=== PATIENT | male | born 1985 | race Caucasian/White ===

== ENCOUNTER 2018-03-07 03:16 | Emergency (ER) | payer OTHER ==
[~2018-03-07] VITALS: Ht 198.1 cm; Wt 145.2 kg
[2018-03-07 03:29] VITALS: BP 170/111
--- NOTE | 2018-03-07 03:32 | ED GI/GU/ABDOMINAL COMPLAINT ---
See Addendum History of Present Illness General Chief Complaint: Abdominal Pain/Flank Pain Stated Complaint: PT C/O SEVERE ABD PAIN Source: patient, family Exam Limitations: no limitations Vital Signs & Intake/Output Vital Signs & Intake/Output Vital Signs Date Time Temp Pulse Resp B/P B/P Pulse O2 O2 Flow FiO2 Mean Ox Delivery Rate 03/07 0329 96.7 53 16 170/111 98 Room Air Room Air Allergies Coded Allergies: No Known Allergies (03/07/18) Triage Note: 33YO MALE TO TRIAGE W/CO LLQ PAIN THAT AWOKE HIM TONITE. +N+V Triage Nurses Notes Reviewed? yes HPI: Patient was awoken from sleep with a sudden onset of severe pain to his left testicle that radiated up towards his left flank. The pain is constant. The pain is aching and cramping in nature. The pain radiates noted above. The pain is 10 out of 10. Positive nausea and vomiting 1. No dysuria or hematuria. Past History Travel History Traveled to [place] past 21 day No Medical History Any Pertinent Medical History? none Neurological: NONE EENT: NONE Cardiovascular: NONE Respiratory: NONE Gastrointestinal: NONE Hepatic: NONE Renal: NONE Musculoskeletal: NONE Psychiatric: NONE Endocrine: NONE Surgical History Surgical History: non-contributory Psychosocial History What is your primary language Panamanian Tobacco Use: Current Daily Use Daily Tobacco Use Amount/Type: => 5 Cigarettes daily ETOH Use: occasional use Illicit Drug Use: denies illicit drug use Family History Hx Contributory? No Review of Systems Review of Systems Constitutional: Reports: no symptoms. EENTM: Reports: no symptoms. Respiratory: Reports: no symptoms. Cardiovascular: Reports: no symptoms. GI: Reports: see HPI, abdominal pain, nausea, vomiting. Genitourinary: Reports: see HPI. Musculoskeletal: Reports: see HPI, back pain. Skin: Reports: no symptoms. Neurological/Psychological: Reports: no symptoms. Hematologic/Endocrine: Reports: no symptoms. Immunologic/Allergic: Reports: no symptoms. All Other Systems: Reviewed and Negative Physical Exam Physical Exam General Appearance: well developed/nourished, alert, awake, anxious, severe distress Head: atraumatic, normal appearance Eyes: Bilateral: PERRL, EOMI. Ears, Nose, Throat, Mouth: hearing grossly normal, moist mucous membrane Neck: normal inspection, supple, full range of motion Respiratory: normal breath sounds, chest non-tender, no respiratory distress, lungs clear Cardiovascular: regular rate/rhythm, normal peripheral pulses Gastrointestinal: normal bowel sounds, soft, non-tender, no organomegaly Male Genitals: HIGH RIDING LEFT TESTICCLE, NO CREMESTERIC REFLEX Back: normal inspection, normal range of motion, NO CVA TENDERNESS Extremities: normal range of motion, pelvis stable Neurologic/Psych: no motor/sensory deficits, awake, alert, oriented x 3, normal gait, normal mood/affect Skin: intact, normal color, diaphoresis Core Measures ACS in differential dx? No Sepsis Present: No Sepsis Focused Exam Completed? No Progress Differential Diagnosis: testicular torsion, ureterolithiasis, UTI/pyelo Plan of Care: Orders Procedure Date/time Status US-TESTICULAR 03/[address] ABD & PELVIS W/O IV CONTRAS 03/07 340 Active LIPASE 03/07 334 Complete COMPREHENSIVE METABOLIC PANEL 03/07 334 Complete CBC WITHOUT DIFFERENTIAL 03/07 334 Complete AMYLASE 03/07 334 Complete URINALYSIS 03/07 331 Complete Laboratory Tests 03/07/18 0634: Lactic Acid Cancelled 03/07/18 0339: Anion Gap 15, Estimated GFR > 60, BUN/Creatinine Ratio 16.7, Glucose 115 H, Calcium 9.2, Total Bilirubin 0.7, AST 38, ALT 62, Alkaline Phosphatase 66, Total Protein 7.3, Albumin 4.5, Globulin 2.8, Albumin/Globulin Ratio 1.6, Amylase 33, Lipase 22 L, CBC w Diff NO MAN DIFF REQ, RBC 5.59, MCV 86.6, MCH 29.0, MCHC 33.4, RDW 12.9, MPV 8.8, Gran % 61.3, Lymphocytes % 28.7, Monocytes % 6.4, Eosinophils % 3.3, Basophils % 0.3, Absolute Granulocytes 5.9, Absolute Lymphocytes 2.7, Absolute Monocytes 0.6, Absolute Eosinophils 0.3, Absolute Basophils 0 03/07/18 0334: Urine Color YEL, Urine Clarity HAZY H, Urine pH 5.5, Ur Specific [place] >= 1.030, Urine Protein 30 H, Urine Ketones NEG, Urine Nitrite NEG, Urine Bilirubin NEG, Urine Urobilinogen 0.2, Ur Leukocyte Esterase NEG, Ur Microscopic SEDIMENT EXAMINED, Urine RBC 10-15 H, Ur Epithelial Cells RARE, Urine Bacteria FEW H, Urine Hemoglobin LARGE H, Urine Glucose NEG Diagnostic Imaging: Viewed by Me: CT Scan, Ultrasound. Discussed w/RAD: CT Scan, Ultrasound. Radiology Impression: SEE BELOW Initial ED EKG: none Comments: WET READ BY RADIOLOGIST: NO TESTICULAR TORSION NO STONE, MILD LEFT HYDRONEPHROSIS, NO HYDROUTETER Patient and his had been updated on and radiology results. Questions up and answered. Departure Departure Disposition: HOME OR SELF CARE Condition: Stable Clinical Impression Primary Impression: Left flank pain Secondary Impressions: Left testicular pain Referrals: Laila BAILON,Francisco Tejada Patient Has No Primary Care Dr (PCP/Family) Additional Instructions: FOLLOW UP WITH DR. MANN TAKE PERCOCET NEEDED FOR PAIN TAKE ZOFRAN NEEDED FOR NAUSEA RETURN IF SYMPTOMS WORSEN OR FOR ANY CONCERNS Departure Forms: Customer Survey General Discharge Information Prescriptions: Current Visit Scripts Ondansetron (Zofran Odt) 1 TAB SL TID PRN NAUSEA #10 TAB Oxycodone HCl/Acetaminophen (Percocet 5-325 MG Tablet) 1-2 TAB PO Q6P PRN PAIN #20 TAB
[2018-03-07 03:54] LABS: ABSOLUTE BASOPHIL COUNT 0 /CUMM (0.0-0.2); ABSOLUTE EOSINOPHIL COUNT 0.3 /CUMM (0.0-0.7); ABSOLUTE GRANULOCYTE CT 5.9 /CUMM (1.4-6.5); ABSOLUTE LYMPH COUNT 2.7 /CUMM (1.2-3.4); ABSOLUTE MONOCYTE COUNT 0.6 /CUMM (0.10-0.60); BASOPHIL % 0.3 % (0.0-2.0); EOSINOPHIL % 3.3 % (0-5); GRANULOCYTE % 61.3 % (42.2-75.2); HEMATOCRIT 48.4 % (42-52); MEAN CORPUSCULAR HGB CONC 33.4 G/DL (33.0-37.0); MEAN CORPUSCULAR VOLUME 86.6 FL (80.0-94.0); MEAN PLATELET VOLUME 8.8 FL (7.4-10.4); PLATELET COUNT 270 /CUMM (130-400); RBC DISTRIBUTION WIDTH 12.9 % (11.5-14.5); RED BLOOD CELL CT 5.59 /CUMM (4.70-6.10); WHITE BLOOD CELL COUNT 9.6 /CUMM (4.8-10.8)
[2018-03-07] MEDS ORDERED: PERCOCET 5-3251 EACH PO (06:43)
[2018-03-07] MEDS ORDERED: ZOFRAN ODT4 M1 SL (06:43)
--- NOTE | 2018-03-07 07:38 | ULTRASOUND REPORT ---
EXAMINATION: US SCROTUM CLINICAL INFORMATION: 33-year-old male patient with left testicular pain. No cremasteric reflex. COMPARISON: None TECHNIQUE: A sonogram of the scrotum was performed assessing hope-scale appearance and color Doppler flow. Spectral analysis and Doppler interrogation was performed. FINDINGS: RIGHT: Right testicle measures 5.2 x 2.7 x 3.3 cm, volume 24 mL. Parenchymal echotexture is normal. No focal testicular parenchymal lesions are visualized. Normal symmetric arterial and venous intratesticular flow is visualized. Right epididymal head is normal in size. No right hydrocele or varicocele is seen. LEFT: Left testicle measures 5.4 x 2.9 x 3.6 cm, volume 29 mL. Parenchymal echotexture is normal. A 3 mm hyperechoic nodule is seen within the left testicle. Series 1-1, image 30/48. This could represent a small intratesticular hemangioma. Normal symmetric arterial and venous intratesticular flow is visualized. Left epididymal head is normal in size. A small cyst is seen in the head of the left epididymis. No left hydrocele or varicocele is seen. IMPRESSION: No sign of testicular torsion. Small intratesticular hemangioma left testicle.
--- NOTE | 2018-03-07 07:43 | CT SCAN REPORT ---
EXAMINATION: CT ABDOMEN AND PELVIS WITHOUT CONTRAST CLINICAL INFORMATION: Left flank pain. COMPARISON: None TECHNIQUE: Multidetector volumetric imaging was performed from the superior aspect of the liver through the pubic symphysis. Sagittal and coronal reformatted images were obtained on the technologist's workstation. 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 LUNG BASES: The visualized lung bases are unremarkable. LIVER, GALLBLADDER, AND BILIARY TREE: Normal. PANCREAS: Unremarkable. SPLEEN: Unremarkable. ADRENAL GLANDS: Unremarkable. KIDNEYS AND URETERS: The kidneys are normal in size, shape, and attenuation. The right kidney is normal. The left kidney shows mild grade 1 hydronephrosis but the left ureter is normal in caliber. No radiopaque calculi are visualized. BLADDER: Empty. GASTROINTESTINAL TRACT: The small and large bowel are unremarkable. No pericecal inflammatory disease. ABDOMINAL WALL: No significant hernia is appreciated. LYMPH NODES: Normal. VASCULAR: Unremarkable. PELVIC VISCERA: Unremarkable. OSSEOUS STRUCTURES: Unremarkable. IMPRESSION: The mild hydronephrosis of the left kidney might imply the recent passage of a stone which is not detected on this study.
== END 2018-03-07 06:50 ==
LOC: ERH 03:16
PROVIDERS: Emergency Medicine
DX: R10.9 Unspecified abdominal pain (principal); N50.812 Left testicular pain
CPT/HCPCS: 74176; 81001; 96374; 96375; J1885; J2405